=== PATIENT | male | born 1955 | race Two or more races ===

== ENCOUNTER 2019-05-13 13:13 | Outpatient (CLI) | payer OTHER | END 2019-05-13 13:27 | disposition home or self-care (01) | LOC: SONOGRAMA 13:13 → MAMO-SONO 13:15 → SONOGRAMA 13:27 | DX: M75.32 Calcific tendinitis of left shoulder (principal) ==

== ENCOUNTER → 2021-01-07 | Day surgery (SDC) | payer OTHER | END | disposition home or self-care (01) | LOC: ADM 12-31 14:15 → AMB-ENDOS 11:40 | PROVIDERS: ATTEND Surgery | DX: D12.5 Benign neoplasm of sigmoid colon (principal); Z20.822 Contact with and (suspected) exposure to COVID-19 ==